=== PATIENT | male | born 1980 | race Caucasian/White ===

== ENCOUNTER 2018-11-29 17:09 | Emergency (ER) | payer OTHER, BC ==
[2018-11-29 17:35] VITALS: BP 142/99; PULSE 88
[2018-11-29] MEDS ORDERED: Diphtheria,Pertussis(Acell),Tetanus Vaccine 0.5 ML Syringe IM ONE (17:47)
[2018-11-29] MEDS ORDERED: Lidocaine 1% 10 ML MDV INJECT ONE (17:47)
--- NOTE | 2018-11-29 18:28 | EDM.PDOC ---
ED HPI GENERAL MEDICAL PROBLEM - General Chief Complaint: Laceration Stated Complaint: LT INDEX FINGER LACERATION Time Seen by Provider: 11/29/18 17:34 Source of Information: Reports: Patient History Limitations: Reports: No Limitations - History of Present Illness INITIAL COMMENTS - FREE TEXT/NARRATIVE: The patient presents with a laceration to the left index finger. 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 He has a 1.5cm laceration to the left index finger. He can move the finger. He is right handed. His tetanus is not up to date. Onset: Sudden Duration: Minutes: Location: Reports: Upper Extremity, Left (Index finger) Quality: Reports: Sharp Severity: Mild Improves with: Reports: None Worsens with: Reports: None Associated Symptoms: Reports: No Other Symptoms - Related Data Allergies Allergy/AdvReac Type Severity Reaction Status Date / Time No Known Allergies Allergy Verified 11/29/18 17:30 Past Medical History - Past Surgical History Other Musculoskeletal Surgeries/Procedures:: broken ankle required cast only Social & Family History - Tobacco Use Smoking Status *Q: Current Every Day Smoker Years of Tobacco use: 20 Packs/Tins Daily: 1 - Caffeine Use Caffeine Use: Reports: Energy Drinks, Soda - Recreational Drug Use Recreational Drug Use: No ED ROS GENERAL - Review of Systems Review Of Systems: See Below Constitutional: Reports: No Symptoms HEENT: Reports: No Symptoms Respiratory: Reports: No Symptoms Cardiovascular: Reports: No Symptoms Endocrine: Reports: No Symptoms GI/Abdominal: Reports: No Symptoms : Reports: No Symptoms Musculoskeletal: Reports: Other (Left index finger laceration) ED EXAM, SKIN/RASH Exam: See Below Exam Limited By: No Limitations General Appearance: Alert, No Apparent Distress Ears: Normal External Exam Nose: Normal Inspection Head: Atraumatic, Normocephalic Neck: Normal Inspection Respiratory/Chest: No Respiratory Distress, Lungs Clear, Normal Breath Sounds Cardiovascular: Regular Rate, Rhythm, No Edema, No Murmur GI/Abdominal: Soft, Non-Tender, No Organomegaly, No Mass Back Exam: Normal Inspection Extremities: Other (1.5cm laceration to the left index finger over the PIP joint. No tendon laceration. Good sensatino and capillary refill distally.) ED SKIN PROCEDURES - Laceration/Wound Repair Left Digit - 2nd (Index) Appearance: Subcutaneous, Irregular Distal NVT: Neuro & Vascular Intact, No Tendon Injury Anesthetic Type: Local Local Anesthesia - Lidocaine (Xylocaine): 1% Plain Skin Prep: Saline Exploration/Debridement/Repair: Wound Explored, In a Bloodless Field, Explored to Base Closed with: Sutures, Wound Adhesive Lac/Wound length In cm: 1.5 Suture Size: 4-0 # of Sutures: 3 Tetanus Status Addressed: Yes Complications: No Course - Vital Signs Last Recorded V/S: Last Vital Signs Temp 98.1 F 11/29/18 17:30 Pulse 88 11/29/18 17:30 Resp 13 11/29/18 17:30 BP 142/99 H 11/29/18 17:30 Pulse Ox 97 11/29/18 17:30 - Orders/Labs/Meds Orders: Active Orders 24 hr Category Date Time Status Vaccines to be Administered [RC] PER UNIT ROUTINE Care 11/29/18 17:47 Active Meds: Medications Discontinued Medications Generic Name Dose Route Start Last Admin Trade Name Freq PRN Reason Stop Dose Admin Diphtheria/Tetanus/Acell Pertussis 0.5 ml 11/29/18 17:47 11/29/18 18:11 Adacel IM 11/29/18 17:48 0.5 ml .ONCE ONE Administration Lidocaine HCl 10 ml 11/29/18 17:47 11/29/18 18:16 Xylocaine 1% INJECT 11/29/18 17:48 10 ml ONETIME ONE Administration - Re-Assessments/Exams Free Text/Narrative Re-Assessment/Exam: 11/29/18 18:27 I sutured the laceration. Departure - Departure Time of Disposition: 18:30 Disposition: Home, Self-Care 01 Condition: Good Clinical Impression: Laceration of left index finger Qualifiers: Encounter type: initial encounter Damage to nail status: without damage Foreign body presence: without foreign body Qualified Code(s): S61.211A - Laceration without foreign body of left index finger without damage to nail, initial encounter - Discharge Information *PRESCRIPTION DRUG MONITORING PROGRAM REVIEWED*: No *COPY OF PRESCRIPTION DRUG MONITORING REPORT IN PATIENT JODI: No Referrals: PCP,None [Primary Care Provider] - Taylor Gastelum PA-C [Physician Junior Staff Accountant] - 1 Week Additional Instructions: Soak your finger in warm soapy water 2 times per day and apply antibiotic ointment after. Have the sutures removed in 1 week. Look for any signs of infection such as redness, swelling, pain or discharge. If you see any of these signs please return of see your doctor. You may need antibiotics. - My Orders Last 24 Hours: My Active Orders 11/29/18 17:47 Vaccines to be Administered [RC] PER UNIT ROUTINE - Assessment/Plan Last 24 Hours: My Active Orders 11/29/18 17:47 Vaccines to be Administered [RC] PER UNIT ROUTINE
== END 2018-11-29 18:39 | disposition home or self-care (01) ==
LOC: JD.ED 17:09
DX: S61.211A Laceration without foreign body of left index finger without damage to nail, initial encounter (principal); F17.210 Nicotine dependence, cigarettes, uncomplicated; Z23 Encounter for immunization; W26.0XXA Contact with knife, initial encounter
CPT/HCPCS: 12001; 90471; 90700; 99283; J2001; 99282